=== PATIENT | male | born 1950 | race Caucasian/White ===

== ENCOUNTER → 2018-08-22 10:25 | Outpatient (CLI) | payer MEDICARE, OTHER, SELFPAY ==
[2014-12-17 10:41] VITALS: BMI 27.8
[2018-08-22 11:02] LABS: PSA,Total- Diagnostic < 0.01 ng/mL (0.0-4.0)
--- OUTSIDE RECORDS SUMMARY | 2018-10-17 18:53 | XMS RPT_ITS ---
:1950 Author Organization OHIP Care Team Providers Name Role Phone TAMIA HANNAH (LIBRARIAN HEAD) Attending Unavailable ROHINI FLORES (JONI) Referring Unavailable TANNA MCCRACKEN Attending Unavailable TAMIA HANNAH (LIBRARIAN HEAD) Referring Unavailable RADHA LEYVA Attending Unavailable RADHA LEYVA Referring Unavailable PROBLEMS PROBLEMS DATE TYPE CONDITION / CODE ATTENDING STATUS SOURCE 08/22/2018 Unknown C61 - Malignant RADHA LEYVA Active [facility] of [facility] prostate / Hospital C61(ICD-10) Repository 04/21/2014 Active Malignant NA Active [facility] neoplasm of [facility] prostate / Repository C61(ICD-10) 08/22/2018 Active Other senior living NA Active [facility] (current) drug [facility] therapy / Repository Z79.899(ICD-10) PROCEDURES PROCEDURES No Procedure Records FoundRESULTS RESULTS PROGRESS Observed: 08/29/2018 Status: COMPLETED Source: [place] 10:23 AM [facility] [place] REPOSITORY HNO ID: [id number] Author: Tanna Mccracken Service: (none) Author Type: Physician Type: Progress Notes Filed: 08/29/2018 8:29 PM Note Text: Reason for Visit Patient presents with: Establish Care: establish care transfer from Jerod Holley is a 67 year old male who presents here today for Above Complaints.. Health Maintenance There are no preventive care reminders to display for this patient. HPI Used to be seen by Dr Chacon. Recent diagnostic PSA was normal at less than 0.01 Had robotic surgery was treatment. He developed a Hernia after sugergy. He did not take any chemo and radiation. 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 Lives home with his . Diet: breakfast: cereal- low sugar cereal, blueberries, black berries, half cup of tomato juice and half a cup of iced tea. Lunch: chicken nuggets, hambuger, If out side, at home, lunch meat Dinner: home and not too much processed food. Potatoes, eats some vegetables, peppers celery. Some butter, sometimes on a sandwich he does not eat much, cheese, eats some eggs a couple of weeks. He is very active, and does some strengthening exercises. No problem-specific Assessment AND Plan notes found for this encounter. PAST MEDICAL HISTORY Diagnosis Date - Anxiety state, unspecified 06/26/2007 - BPH w urinary obs/LUTS 06/26/2006 - Chronic rhinitis 08/25/2009 - Diarrhea - Essential hypertension, benign - HYPERGLYCEMIA 06/26/2007 - Incisional hernia 09/29/2014 - Internal hemorrhoids without mention of complication - MITRAL REGURGITATION 06/26/2006 Echo 03 August 2000 - Obesity, unspecified - Other and unspecified hyperlipidemia 12/22/2005 - Prostate cancer (HCC) 04/21/2014 - Situational anxiety 03/12/2018 - Unspecified essential hypertension 12/22/2005 PAST SURGICAL HISTORY Procedure Laterality Date - APPENDECTOMY 1971 - COLONOSCOP W/ OR W/O [facility] SPEC 09/16/05 Colonoscopy - COLONOSCOP W/ OR W/O [facility] SPEC 12-03-14 - LAP RETROPUBIC PROSTATECTOMY 08/08 - REPAIR INCISIONAL HERNIA,REDUCIBLE 12-17-14 - TONSILLECTOMY AND ADENOIDECTOMY HX 1959 FAMILY HISTORY Problem Relation Age of Onset - Stroke Mother - Stroke Father - Diabetes Paternal Grandmother - None Brother - None Brother - Stroke Brother - Diabetes Brother - Hypertension Brother Social History Substance Use Topics - Smoking status: Never Smoker - Smokeless tobacco: Never Used - Alcohol use 3.0 oz/week 2 Cans of Beer (12oz) per week Past medical history, appointments, medications, allergies reviewed. Pertinent Lab/Diagnostic Studies are reviewed and discussed today Current Outpatient Prescriptions: - enalapril-hydrochlorothiazide (VASERETIC) 10-25 mg per tablet - escitalopram oxalate (LEXAPRO) 10 mg tablet - B Complex Vitamins (SUPER B-50 COMPLEX) capsule - turmeric root extract 500 mg cap - niacin (NIACIN) 500 mg tablet - aspirin, enteric coated (ASPIRIN, ENTERIC COATED) 81 mg EC tablet - LORazepam (ATIVAN) 0.5 mg tab - MULTIVITAMIN ORAL TAB Review of Systems CONSTITUTIONAL: No fevers, chills night sweats, unintended weight loss CARDIOVASCULAR: No chest pain, dyspnea, palpitations, orthopnea, PND, ankle edema. PULM: No dyspnea, unexplained cough. GI: No dysphagia/odynophagia, problematic reflux, constipation, diarrhea, changes in stool habits, hematochezia, melena. : No new urinary complaints, including dysuria, gross hematuria or pyuria. NEURO: No new balance problems, peripheral weakness/paresthesias or numbness of concern. Physical Exam BP 136/70 (BP Site: Left Arm, BP Position: Sitting, BP Cuff Size: Large Adult) Pulse 71 Resp 12 Ht 181.6 cm (5' 11.5) Wt 92.1 kg (203 lb) SpO2 94% BMI 27.92 kg/m? General appearance: Well appearing, alert, in no acute distress, well nourished. Skin: Skin color, texture, turgor normal, no suspicious rashes or lesions Head: Normocephalic, no masses, lesions, tenderness or abnormalities Eyes: Anicteric sclera. Pupils are equally round and reactive to light. Extraocular movements are intact. Lungs: Lungs clear to auscultation. No wheezing, rhonchi, rales Heart: RRR without murmur, gallop, or rubs. Extremities: No deformities, edema, skin discoloration, clubbing or cyanosis. Good capillary refill. ASSESSMENT/PLAN: 1. Essential hypertension - ICD9: 401.9, ICD10: I10 (primary diagnosis) - good control - Recommended regular aerobic exercise. - Recommend home blood pressure monitoring, to bring results in on next visit - Goal of BP <130/80 - ENALAPRIL 10 MG-HYDROCHLOROTHIAZIDE 25 MG TABLET 2. Prostate cancer (HCC) - ICD9: 185, ICD10: C61 Reviewed blood work 3. Anxiety - ICD9: 300.00, ICD10: F41.9 - ESCITALOPRAM 10 MG TABLET 4. Mixed hyperlipidemia - ICD9: 272.2, ICD10: E78.2 Will do dietary changes and exercise daily and see how that helps TANNA MCCRACKEN MD CNOV Observed: 08/29/2018 Status: COMPLETED Source: [place] 10:00 AM [facility] REPOSITORY Office Visit (INTMWS) JEROD HOLLEY ([id number]) 1950 M Date Time Provider Department 08/29/18 10:00 AM TANNA MCCRACKEN During your visit today, we recorded the following information about you: Pulse Respiration Blood pressure Weight 71/minute 12/minute 136/70 92.1 kg Height 1.816 m TANNA MCCRACKEN MD 08/29/2018 8:29 PM Signed Reason for Visit Patient presents with: Establish Care: establish care transfer from Jerod Holley is a 67 year old male who presents here today for Above Complaints.. Health Maintenance There are no preventive care reminders to display for this patient. HPI Used to be seen by Dr Chacon. Recent diagnostic PSA was normal at less than 0.01 Had robotic surgery was treatment. He developed a Hernia after sugergy. He did not take any chemo and radiation. 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 Lives home with his . Diet: breakfast: cereal- low sugar cereal, blueberries, black berries, half cup of tomato juice and half a cup of iced tea. Lunch: chicken nuggets, hambuger, If out side, at home, lunch meat Dinner: home and not too much processed food. Potatoes, eats some vegetables, peppers celery. Some butter, sometimes on a sandwich he does not eat much, cheese, eats some eggs a couple of weeks. He is very active, and does some strengthening exercises. No problem-specific Assessment AND Plan notes found for this encounter. PAST MEDICAL HISTORY Diagnosis Date - Anxiety state, unspecified 06/26/2007 - BPH w urinary obs/LUTS 06/26/2006 - Chronic rhinitis 08/25/2009 - Diarrhea - Essential hypertension, benign - HYPERGLYCEMIA 06/26/2007 - Incisional hernia 09/29/2014 - Internal hemorrhoids without mention of complication - MITRAL REGURGITATION 06/26/2006 Echo 03 August 2000 - Obesity, unspecified - Other and unspecified hyperlipidemia 12/22/2005 - Prostate cancer (HCC) 04/21/2014 - Situational anxiety 03/12/2018 - Unspecified essential hypertension 12/22/2005 PAST SURGICAL HISTORY Procedure Laterality Date - APPENDECTOMY 1971 - COLONOSCOP W/ OR W/O [facility] SPEC 09/16/05 Colonoscopy - COLONOSCOP W/ OR W/O [facility] SPEC 12-03-14 - LAP RETROPUBIC PROSTATECTOMY 08/08 - REPAIR INCISIONAL HERNIA,REDUCIBLE 12-17-14 - TONSILLECTOMY AND ADENOIDECTOMY HX 1960 FAMILY HISTORY Problem Relation Age of Onset - Stroke Mother - Stroke Father - Diabetes Paternal Grandmother - None Brother - None Brother - Stroke Brother - Diabetes Brother - Hypertension Brother Social History Substance Use Topics - Smoking status: Never Smoker - Smokeless tobacco: Never Used - Alcohol use 3.0 oz/week 2 Cans of Beer (12oz) per week Past medical history, appointments, medications, allergies reviewed. Pertinent Lab/Diagnostic Studies are reviewed and discussed today Current Outpatient Prescriptions: - enalapril-hydrochlorothiazide (VASERETIC) 10-25 mg per tablet - escitalopram oxalate (LEXAPRO) 10 mg tablet - B Complex Vitamins (SUPER B-50 COMPLEX) capsule - turmeric root extract 500 mg cap - niacin (NIACIN) 500 mg tablet - aspirin, enteric coated (ASPIRIN, ENTERIC COATED) 81 mg EC tablet - LORazepam (ATIVAN) 0.5 mg tab - MULTIVITAMIN ORAL TAB Review of Systems CONSTITUTIONAL: No fevers, chills night sweats, unintended weight loss CARDIOVASCULAR: No chest pain, dyspnea, palpitations, orthopnea, PND, ankle edema. PULM: No dyspnea, unexplained cough. GI: No dysphagia/odynophagia, problematic reflux, constipation, diarrhea, changes in stool habits, hematochezia, melena. : No new urinary complaints, including dysuria, gross hematuria or pyuria. NEURO: No new balance problems, peripheral weakness/paresthesias or numbness of concern. Physical Exam BP 136/70 (BP Site: Left Arm, BP Position: Sitting, BP Cuff Size: Large Adult) Pulse 71 Resp 12 Ht 181.6 cm (5' 11.5) Wt 92.1 kg (203 lb) SpO2 94% BMI 27.92 kg/m? General appearance: Well appearing, alert, in no acute distress, well nourished. Skin: Skin color, texture, turgor normal, no suspicious rashes or lesions Head: Normocephalic, no masses, lesions, tenderness or abnormalities Eyes: Anicteric sclera. Pupils are equally round and reactive to light. Extraocular movements are intact. Lungs: Lungs clear to auscultation. No wheezing, rhonchi, rales Heart: RRR without murmur, gallop, or rubs. Extremities: No deformities, edema, skin discoloration, clubbing or cyanosis. Good capillary refill. ASSESSMENT/PLAN: 1. Essential hypertension - ICD9: 401.9, ICD10: I10 (primary diagnosis) - good control - Recommended regular aerobic exercise. - Recommend home blood pressure monitoring, to bring results in on next visit - Goal of BP <130/80 - ENALAPRIL 10 MG-HYDROCHLOROTHIAZIDE 25 MG TABLET 2. Prostate cancer (HCC) - ICD9: 185, ICD10: C61 Reviewed blood work 3. Anxiety - ICD9: 300.00, ICD10: F41.9 - ESCITALOPRAM 10 MG TABLET 4. Mixed hyperlipidemia - ICD9: 272.2, ICD10: E78.2 Will do dietary changes and exercise daily and see how that helps TANNA MCCRACKEN MD Referring Provider: TAMIA HANNAH ([facility]) [[id number]] Allergies As of Date: 08/29/2018 Noted Allergy Reaction DUST 06/23/2005 HYDROCODONE-ACETAMINOPHEN 12/26/2014 1 - Mental Status Change Comments: Agitated Date Reviewed: 08/29/2018 Reviewed by: Steffanie Francisco LPN - Fully Assessed Reason for Visit: Establish Care [42] Cmt: establish care transfer from Primary Visit Diagnosis:Essential hypertension [I10] Other Visit Diagnoses:Prostate cancer (HCC) [C61] Anxiety [F41.9] Mixed hyperlipidemia [E78.2] Order(s):enalapril-hydrochlorothiazide (VASERETIC) 10-25 mg per tabletTake 1 tablet by mouth once daily.Disp: 90 tabletRfl: 3 escitalopram oxalate (LEXAPRO) 10 mg tabletTake 1 tablet by mouth once daily.Disp: 90 tabletRfl: 2 LIPID PANEL BASIC [SQLIPB] Order #: [id number] FUTURE Prescriptions as of 08/29/2018 Sig: ENALAPRIL 10 MG-HYDROCHLOROTH* Take 1 tablet by mouth once d* ESCITALOPRAM 10 MG TABLET Take 1 tablet by mouth once d* VITAMIN B COMPLEX CAPSULE Take 1 capsule by mouth once * TURMERIC ROOT EXTRACT 500 MG * Take by mouth once daily. NIACIN 500 MG TABLET Take 1 tablet by mouth daily * ASPIRIN 81 MG TABLET,DELAYED * Take 81 mg by mouth once ann* LORAZEPAM 0.5 MG TABLET Take 1 tablet by mouth once d* * MULTIVITAMIN TABLET Take one(1) tablet daily BY M* Medication notes this encounter LORAZEPAM 0.5 MG TABLET >> Steffanie Francisco LPN 08/29/2018 10:01 AM >> STEFFANIE FRANCISCO METAL PAINTER MonAug 29, 2018 10:01 AM patient never took this Problem List As Of Date 08/29/2018 Noted Resolved OVERWEIGHT [E66.9] Diarrhea [R19.7] INVALID FOR*02/08/2017 Internal hemorrhoids without mention of complic* 02/08/2017 Essential hypertension [I10] INVALID FOR* More... Other and unspecified hyperlipidemia [E78.5] INVALID FOR*06/30/2017 BPH w urinary obs/LUTS [N40.1, N13.8] INVALID FOR*02/08/2017 MITRAL REGURGITATION [I05.9] INVALID FOR* More... HYPERGLYCEMIA [R79.89] INVALID FOR*06/30/2017 Anxiety state, unspecified [F41.1] INVALID FOR*02/08/2017 Nonspecific abnormal results of liver function *INVALID FOR*02/08/2017 Chronic Rhinitis [J31.0] INVALID FOR* Kendrick angioma [D18.01] INVALID FOR*02/08/2017 Seborrheic Keratoses [L82.1] INVALID FOR*02/08/2017 Solar Lentigines [L81.4] INVALID FOR*02/08/2017 Actinic Damage///Sun-damaged skin [L57.8] INVALID FOR*02/08/2017 Elevated prostate specific antigen (PSA) [R97.2*INVALID FOR*02/08/2017 Abnormal digital rectal exam [R68.89] INVALID FOR*02/08/2017 Prostate cancer (HCC) [C61] INVALID FOR* More... Incisional hernia [K43.2] INVALID FOR*02/08/2017 Weight loss, non-intentional [R63.4] INVALID FOR*03/12/2018 Situational anxiety [F41.8] INVALID FOR* Prescriptions ordered this encounter Disp Refills Start End ENALAPRIL 10 MG-HYDROCHLOROTHIAZIDE * 90 t* 3 08/29/2018 Route: ORAL Sig: Take 1 tablet by mouth once daily. ESCITALOPRAM 10 MG TABLET 90 t* 2 08/29/2018 Route: ORAL Sig: Take 1 tablet by mouth once daily. Medications Discontinued During This Encounter enalapril-hydrochlorothiazide (VASER* 90 t* 3 04/11/2018 08/29/2018 Route: ORAL Sig: Take 1 tablet by mouth once daily. Disc: Reason for discontinue is not on file. escitalopram oxalate (LEXAPRO) 10 mg* 90 t* 2 03/12/2018 08/29/2018 Route: ORAL Sig: Take 1 tablet by mouth once daily. Disc: Reason for discontinue is not on file. Encounter Status:Closed by TANNA MCCRACKEN MD on 08/29/18 PSA,TOTAL- DIAGNOSTIC Collected: 08/22/2018 Status: F Source: [place] 10:35 AM [facility] REPOSITORY TYPE CODE TESTS RESULT OUT OF RANGE REFERENCE UNITS LAB L501.9940 0.0-4.0 ng/mL PSA, Normal DIAGNOSTIC < 0.01 Result Comment: This test was performed using the TPSA assay method for the [employer] chemistry system. Values obtained with different assay methods cannot be used interchangably. When changing PSA assays in the course of monitoring a patient, additional sequential testing should be carried out to confirm baseline values. Performed By: #### [id number] #### [facility] [address] [place], [address] PSA, DIAGNOSTIC Collected: 08/22/2018 Status: F Source: [facility] 10:10 AM [facility] REPOSITORY TYPE CODE TESTS RESULT OUT OF REFERENCE UNITS RANGE LAB PSA 0.00-2.59 ng/mL PSA, Test Diagnostic sent to [facility]. Result Comment: Account Credited HIDE BASIC METABOLIC PANL Collected: 08/22/2018 Status: F Source: [facility] 10:10 AM [facility] REPOSITORY TYPE CODE TESTS RESULT OUT OF REFERENCE UNITS RANGE LAB GLU 74-99 mg/dL High Glucose 106 Result Comment: The [place] [employer] (ADA) provides guidance for cutoff values for fasting glucose and random glucose. The ADA defines fasting as no caloric intake for at least 8 hours. Fas ting plasma glucose results between 100 to 125 mg/dL indicate increased risk for diabetes (prediabetes). Fasting plasma glucose results greater than or equal to 126 mg/dL meet the criteria for diagnosis of diabetes. In the absence of unequivocal hyperglycemia, results should be confirmed by repeat testing. In a patient with classic symptoms of hyperglycemia or hyperglycemic crisis, random plasma glucose results greater than or equal to 200 mg/dL meet the criteria for diagnosis of diabetes. Reference: Standards of Medical Care in Diabetes 2016, [place] [employer]. Diabetes Care. 2016.39(Suppl 1). LAB BUN 9-24 mg/dL BUN 16 LAB CRET 0.73-1.22 mg/dL Creatinine 0.90 LAB NA 136-144 mmol/L Sodium 142 LAB K 3.7-5.1 mmol/L Potassium 4.3 LAB CL 97-105 mmol/L Chloride 101 LAB CO2 22-30 mmol/L CO2 28 LAB AGAP 9-18 mmol/L Anion Gap 13 LAB CA 8.5-10.2 mg/dL Calcium, Total 9.4 LAB GFRAA eGFR- Amer. >60 LAB GFRNAA . eGFR-All Other Races >60 Result Comment: eGFR (Estimated GFR) Units of measure: mL/min/1.73 meters squared eGFR is derived from the reexpressed MDRD Study equation using the following parameters: serum creatinine, age, gender and race. The creatinine assay has been calibrated to be traceable to IDMS. An eGFR <60 mL/min/1.73m2 for >3 months is consistent with chronic kidney disease. Refer to KDOQI guidelines for clinical interpretation. In patients with unstable renal function, e.g. those with acute kidney injury, the eGFR may not accurately reflect actual GFR. Performed By: #### BMP, LIPB #### [facility] [address] [place], [place] [address] LIPID PANEL, BASIC Collected: 08/22/2018 Status: F Source: [place] 10:10 AM [facility] REPOSITORY TYPE CODE TESTS RESULT OUT OF REFERENCE UNITS RANGE LAB CHOL <200 mg/dL Cholesterol 171 Result Comment: <200 mg/dL, Desirable 200-239 mg/dL, Borderline high >239 mg/dL, High LAB TRIGLY <150 mg/dL Triglyceride High 159 Result Comment: <150 mg/dL, Normal 150-199 mg/dL, Borderline high 200-499 mg/dL, High >499 mg/dL, Very high LAB HDL >39 mg/dL HDL-Cholesterol Low 29 Result Comment: 40-59 mg/dL, Acceptable >59 mg/dL, High: Negative risk factor for coronary heart disease <40 mg/dL, Low: Positive risk factor for coronary heart disease LAB LDL <100 mg/dL LDL-Cholesterol High 110 Result Comment: <100 mg/dL, Optimal 100-129 mg/dL, Near optimal/above optimal 130-159 mg/dL, Borderline high 160-189 mg/dL, High >189 mg/dL, Very high Secondary prevention optimal LDL Cholesterol levels are recommended to be < 70 mg/dL LAB NONHDL <130 mg/dL Non HDL High Cholesterol 142 Result Comment: <130 mg/dL, Optimal 130-159 mg/dL, Near optimal/above optimal 160-189 mg/dL, Borderline high 190-219 mg/dL, High >219 mg/dL, Very high Secondary prevention optimal non HDL Cholesterol levels are recommended to be < 100 mg/dL LAB FT hrs Fasting Time 12 LAB VLDL <30 mg/dL High VLDL Cholesterol 32 LAB TCHDL <5.10 High TC:HDL Ratio 5.90 LAB LDLHDL <2.54 High LDL:HDL Ratio 3.79 Result Comment: Reference: 1. National Cholesterol Education Program ATP III Guideline At-A-Glance Quick Desk Reference: National Heart, Lung, and Blood [place]. National Institutes of Health. 2001: NIH Publication No. 01-3305. 2. An International Atherosclerosis Society position paper: global recommendations for the management of dyslipidemia: executive summary, Atherosclerosis. 2014: 232(2):410-413. Performed By: #### BMP, LIPB #### [facility] [address] [place] [address] CBC Collected: 08/22/2018 Status: F Source: [place] 10:09 AM [facility] REPOSITORY TYPE CODE TESTS RESULT OUT OF REFERENCE UNITS RANGE LAB WBC 3.70-11.00 k/uL WBC Unable to assay. No specimen received. Result Comment: Account Credited LAB RBC 4.20-6.00 m/uL Unable to RBC assay. No specimen received. Result Comment: Account Credited LAB HGB 13.0-17.0 g/dL Hemoglobin Unable to assay. No specimen received. Result Comment: Account Credited LAB HCT 39.0-51.0 % Hematocrit Unable to assay. No specimen received. Result Comment: Account Credited LAB MCV 80.0-100.0 fL Unable to MCV assay. No specimen received. Result Comment: Account Credited LAB MCH 26.0-34.0 pG Unable to MCH assay. No specimen received. Result Comment: Account Credited LAB MCHC 30.5-36.0 g/dL Unable MCHC to assay. No specimen received. Result Comment: Account Credited LAB RDWCV 11.5-15.0 % Unable RDW-CV to assay. No specimen received. Result Comment: Account Credited LAB PLTCT 150-400 k/uL Unable Platelet Count to assay. No specimen received. Result Comment: Account Credited LAB MPV 9.0-12.7 fL Unable to MPV assay. No specimen received. Result Comment: Account Credited LAB SOHAIL Recheck Unable to assay. No specimen received. Result Comment: Account Credited LAB REVW Unable to Review assay. No specimen received. Result Comment: Account Credited LAB CBCCOM Comment Unable to assay. No specimen received. Result Comment: Account Credited LAB ABSNUC <0.01 k/uL Unable Absolute nRBC to assay. No specimen received. Result Comment: Account Credited Performed By: #### CBC #### [facility] [address] [place], [place] [address] SHAUN CBC Collected: 08/22/2018 Status: F Source: [place] 10:00 AM [facility] [place] REPOSITORY TYPE CODE TESTS RESULT OUT OF REFERENCE UNITS RANGE LAB WWBC 3.70-11.00 k/uL [place] WBC 6.89 LAB WRBC 4.20-6.00 m/uL [place] RBC 5.50 LAB WHGB 13.0-17.0 g/dL [place] High Hemoglobin 17.2 LAB WHCT 39.0-51.0 % [place] Hematocrit 49.1 LAB WMCV 80.0-100.0 fL [place] MCV 89.3 LAB WMCH 26.0-34.0 pg [place] MCH 31.3 LAB WMCHC 30.5-36.0 g/dL [place] MCHC 35.0 LAB WRDW 11.5-15.0 % [place] RDW 12.4 LAB WPLT 150-400 k/uL [place] Platelet Cnt 278 LAB WMPV 9.0-12.7 fL [place] MPV 10.7 Result Comment: Test performed at: [facility] [place], [address] [place] [address]. PROGRESS Observed: 03/12/2018 Status: COMPLETED Source: [place] 8:52 AM [facility] REPOSITORY HNO ID: [id number] Author: Tamia (Technical Communication Teacher) Older Service: (none) Author Type: Nurse Practitioner Type: Progress Notes Filed: 03/12/2018 8:58 AM Note Text: CC: Patient presents with: Medication Follow-up HPI Jerod Holley is a 67 year old male who presents today for medication follow-up. Patient needs refill of Lexapro. Taking for anxiety. States he is doing well on the medication and denies any side effects. It is effective at controlling his anxiety and irritability. Denies any other concerns or issues today. REVIEW OF SYSTEMS General: no fevers, no chills, no night sweats, no recurrent infections, no change in appetite, no significant changes in weight. Positive for fatigue. Weight has gone up since last appointment, he had been concerned about recent weight loss. Work-up unremarkable for weight loss. Respiratory: no cough, no wheezing, no shortness of breath Cardiovascular: no chest pain, no chest pressure, no palpitations and no swelling PAST MEDICAL HISTORY Diagnosis Date - Anxiety state, unspecified 06/26/2007 - BPH w urinary obs/LUTS 06/26/2006 - Chronic rhinitis 08/25/2009 - Diarrhea - Essential hypertension, benign - HYPERGLYCEMIA 06/26/2007 - Incisional hernia 09/29/2014 - Internal hemorrhoids without mention of complication - MITRAL REGURGITATION 06/26/2006 Echo 03 August 2000 - Obesity, unspecified - Other and unspecified hyperlipidemia 12/22/2005 - Prostate cancer (HCC) 04/21/2014 - Unspecified essential hypertension 12/22/2005 PAST SURGICAL HISTORY Procedure Laterality Date - APPENDECTOMY 1972 - COLONOSCOP W/ OR W/O [facility] SPEC 09/16/05 Colonoscopy - COLONOSCOP W/ OR W/O [facility] SPEC 12-03-14 - LAP RETROPUBIC PROSTATECTOMY 08/08 - REPAIR INCISIONAL HERNIA,REDUCIBLE 12-17-14 - TONSILLECTOMY AND ADENOIDECTOMY HX 1959 ALLERGIES Dust; Hydrocodone-Acetaminophen MEDICATIONS escitalopram oxalate (LEXAPRO) 10 mg tablet Take 1 tablet by mouth once daily. LORazepam (ATIVAN) 0.5 mg tab Take 1 tablet by mouth once daily as needed (anxiety). enalapril-hydrochlorothiazide (VASERETIC) 10-25 mg per tablet Take 1 tablet by mouth once daily. B Complex Vitamins (SUPER B-50 COMPLEX) capsule Take 1 capsule by mouth once daily. turmeric root extract 500 mg cap Take by mouth once daily. niacin (NIACIN) 500 mg tablet Take 1 tablet by mouth daily with breakfast. aspirin, enteric coated (ASPIRIN, ENTERIC COATED) 81 mg EC tablet Take 81 mg by mouth once daily. MULTIVITAMIN ORAL TAB Take one(1) tablet daily BY MOUTH. FAMILY HISTORY Problem Relation Age of Onset - Stroke Mother - Stroke Father - Diabetes Paternal Grandmother - None Brother - None Brother - Stroke Brother - Diabetes Brother - Hypertension Brother Social History Substance Use Topics - Smoking status: Never Smoker - Smokeless tobacco: Never Used - Alcohol use 3.0 oz/week 2 Cans of Beer (12oz) per week PHYSICAL EXAM BP 120/79 Pulse 69 Temp 36.5 ?C (97.7 ?F) (Temporal Artery) Resp 14 Wt 88.5 kg (195 lb) SpO2 97% BMI 26.82 kg/m? Appearance: well dressed well groomed, cooperative and pleasant Behavior: good eye contact Speech: fluent and coherent Mood: euthymic Affect: constricted Insight: good Judgment: good Neck: Thyroid normal size and symmetric without palpable nodules, No adenopathy Lungs: Lungs clear to auscultation. No wheezing, rhonchi, rales Heart: RRR without murmur, gallop, or rubs. No ectopy ZOSTER VACCINE (SHINGRIX)(2 of 3) due on 10/12/2012 PNEUMOVAX AGE 65 AND OVER WITH 5YR LOOKBACK(1) due on 07/29/2019 DIABETES SCREEN due on 08/04/2020 LIPID SCREEN due on 06/24/2022 DTAP,TDAP,TD(2 - Td) due on 08/17/2022 COLORECTAL CANCER SCREENING,SEE MODIFIER due on 12/03/2024 PROSTATE CANCER SCREENING DISCUSSION Completed ADULT PREVNAR-13 Completed INFLUENZA Completed HEPATITIS C SCREENING Completed ASSESSMENT/PLAN: 1. Situational anxiety - ICD9: 300.09, ICD10: F41.8 (primary diagnosis) Patient doing well on current dose, no side effects Continue with Lexapro 10 mg daily Patient would like to transfer care to another PCP, will schedule 6 month follow-up for this 2. Essential hypertension - ICD9: 401.9, ICD10: I10 - good control - Continue current medication(s) - Encouraged dietary sodium restriction/DASH diet - Recommended regular aerobic exercise. - Recommend home blood pressure monitoring, to bring results in on next visit - Recheck in 6 months, sooner should new symptoms or problems arise. - Goal of BP <140/90 Prescription instructions reviewed with patient as applicable. Potential red flag symptoms discussed with the patient. Reviewed appropriate action plan to take if red flag symptoms occur. Patient agreeable to treatment plan. Tamia Hannah APRN.CNP CNOV Observed: 03/12/2018 Status: COMPLETED Source: [place] 8:40 AM [facility] REPOSITORY Office Visit (INTMWS) JEROD HOLLEY ([id number]) 1950 M Date Time Provider Department 03/12/18 8:40 AM TAMIA HANNAH (DIMAS) INTMWS During your visit today, we recorded the following information about you: Temperature Pulse Respiration Blood pressure 97.7 degrees 69/minute 14/minute 120/79 Weight 88.5 kg Tamia Hannah APRN.CNP 03/12/2018 8:50 AM Signed Shingrix (Shingles vaccination) Tamia Hannah APRN.CNP 03/12/2018 8:58 AM Signed CC: Patient presents with: Medication Follow-up HPI Jerod Holley is a 67 year old male who presents today for medication follow-up. Patient needs refill of Lexapro. Taking for anxiety. States he is doing well on the medication and denies any side effects. It is effective at controlling his anxiety and irritability. Denies any other concerns or issues today. REVIEW OF SYSTEMS General: no fevers, no chills, no night sweats, no recurrent infections, no change in appetite, no significant changes in weight. Positive for fatigue. Weight has gone up since last appointment, he had been concerned about recent weight loss. Work-up unremarkable for weight loss. Respiratory: no cough, no wheezing, no shortness of breath Cardiovascular: no chest pain, no chest pressure, no palpitations and no swelling PAST MEDICAL HISTORY Diagnosis Date - Anxiety state, unspecified 06/26/2007 - BPH w urinary obs/LUTS 06/26/2006 - Chronic rhinitis 08/25/2009 - Diarrhea - Essential hypertension, benign - HYPERGLYCEMIA 06/26/2007 - Incisional hernia 09/29/2014 - Internal hemorrhoids without mention of complication - MITRAL REGURGITATION 06/26/2006 Echo 03 August 2000 - Obesity, unspecified - Other and unspecified hyperlipidemia 12/22/2005 - Prostate cancer (HCC) 04/21/2014 - Unspecified essential hypertension 12/22/2005 PAST SURGICAL HISTORY Procedure Laterality Date - APPENDECTOMY 1971 - COLONOSCOP W/ OR W/O [facility] SPEC 09/16/05 Colonoscopy - COLONOSCOP W/ OR W/O [facility] SPEC 12-03-14 - LAP RETROPUBIC PROSTATECTOMY 08/08 - REPAIR INCISIONAL HERNIA,REDUCIBLE 12-17-14 - TONSILLECTOMY AND ADENOIDECTOMY HX 1959 ALLERGIES Dust; Hydrocodone-Acetaminophen MEDICATIONS escitalopram oxalate (LEXAPRO) 10 mg tablet Take 1 tablet by mouth once daily. LORazepam (ATIVAN) 0.5 mg tab Take 1 tablet by mouth once daily as needed (anxiety). enalapril-hydrochlorothiazide (VASERETIC) 10-25 mg per tablet Take 1 tablet by mouth once daily. B Complex Vitamins (SUPER B-50 COMPLEX) capsule Take 1 capsule by mouth once daily. turmeric root extract 500 mg cap Take by mouth once daily. niacin (NIACIN) 500 mg tablet Take 1 tablet by mouth daily with breakfast. aspirin, enteric coated (ASPIRIN, ENTERIC COATED) 81 mg EC tablet Take 81 mg by mouth once daily. MULTIVITAMIN ORAL TAB Take one(1) tablet daily BY MOUTH. FAMILY HISTORY Problem Relation Age of Onset - Stroke Mother - Stroke Father - Diabetes Paternal Grandmother - None Brother - None Brother - Stroke Brother - Diabetes Brother - Hypertension Brother Social History Substance Use Topics - Smoking status: Never Smoker - Smokeless tobacco: Never Used - Alcohol use 3.0 oz/week 2 Cans of Beer (12oz) per week PHYSICAL EXAM BP 120/79 Pulse 69 Temp 36.5 ?C (97.7 ?F) (Temporal Artery) Resp 14 Wt 88.5 kg (195 lb) SpO2 97% BMI 26.82 kg/m? Appearance: well dressed well groomed, cooperative and pleasant Behavior: good eye contact Speech: fluent and coherent Mood: euthymic Affect: constricted Insight: good Judgment: good Neck: Thyroid normal size and symmetric without palpable nodules, No adenopathy Lungs: Lungs clear to auscultation. No wheezing, rhonchi, rales Heart: RRR without murmur, gallop, or rubs. No ectopy ZOSTER VACCINE (SHINGRIX)(2 of 3) due on 10/12/2012 PNEUMOVAX AGE 65 AND OVER WITH 5YR LOOKBACK(1) due on 07/29/2019 DIABETES SCREEN due on 08/04/2020 LIPID SCREEN due on 06/24/2022 DTAP,TDAP,TD(2 - Td) due on 08/17/2022 COLORECTAL CANCER SCREENING,SEE MODIFIER due on 12/03/2024 PROSTATE CANCER SCREENING DISCUSSION Completed ADULT PREVNAR-13 Completed INFLUENZA Completed HEPATITIS C SCREENING Completed ASSESSMENT/PLAN: 1. Situational anxiety - ICD9: 300.09, ICD10: F41.8 (primary diagnosis) Patient doing well on current dose, no side effects Continue with Lexapro 10 mg daily Patient would like to transfer care to another PCP, will schedule 6 month follow-up for this 2. Essential hypertension - ICD9: 401.9, ICD10: I10 - good control - Continue current medication(s) - Encouraged dietary sodium restriction/DASH diet - Recommended regular aerobic exercise. - Recommend home blood pressure monitoring, to bring results in on next visit - Recheck in 6 months, sooner should new symptoms or problems arise. - Goal of BP <140/90 Prescription instructions reviewed with patient as applicable. Potential red flag symptoms discussed with the patient. Reviewed appropriate action plan to take if red flag symptoms occur. Patient agreeable to treatment plan. Tamia Hannah APRN.LIBRARIAN HEAD Referring Provider: SELF [200] Allergies As of Date: 03/12/2018 Noted Allergy Reaction DUST 06/23/2005 HYDROCODONE-ACETAMINOPHEN 12/26/2014 1 - Mental Status Change Comments: Agitated Date Reviewed: 03/12/2018 Reviewed by: Arelis Ceja Fur Polisher - Fully Assessed Reason for Visit: Medication Follow-up [270] Primary Visit Diagnosis:Situational anxiety [F41.8] Other Visit Diagnosis:Essential hypertension [I10] Order(s):escitalopram oxalate (LEXAPRO) 10 mg tabletTake 1 tablet by mouth once daily.Disp: 90 tabletRfl: 2 Prescriptions as of 03/12/2018 Sig: ESCITALOPRAM 10 MG TABLET Take 1 tablet by mouth once d* LORAZEPAM 0.5 MG TABLET Take 1 tablet by mouth once d* ENALAPRIL 10 MG-HYDROCHLOROTH* Take 1 tablet by mouth once d* VITAMIN B COMPLEX CAPSULE Take 1 capsule by mouth once * TURMERIC ROOT EXTRACT 500 MG * Take by mouth once daily. NIACIN 500 MG TABLET Take 1 tablet by mouth daily * ASPIRIN 81 MG TABLET,DELAYED * Take 81 mg by mouth once ann* * MULTIVITAMIN TABLET Take one(1) tablet daily BY M* Problem List As Of Date 03/12/2018 Noted Resolved OVERWEIGHT [E66.9] Diarrhea [R19.7] INVALID FOR*02/08/2017 Internal hemorrhoids without mention of complic* 02/08/2017 Essential hypertension [I10] INVALID FOR* More... Other and unspecified hyperlipidemia [E78.5] INVALID FOR*06/30/2017 BPH w urinary obs/LUTS [N40.1, N13.8] INVALID FOR*02/08/2017 MITRAL REGURGITATION [I05.9] INVALID FOR* More... HYPERGLYCEMIA [R79.89] INVALID FOR*06/30/2017 Anxiety state, unspecified [F41.1] INVALID FOR*02/08/2017 Nonspecific abnormal results of liver function *INVALID FOR*02/08/2017 Chronic Rhinitis [J31.0] INVALID FOR* Kendrick angioma [D18.01] INVALID FOR*02/08/2017 Seborrheic Keratoses [L82.1] INVALID FOR*02/08/2017 Solar Lentigines [L81.4] INVALID FOR*02/08/2017 Actinic Damage///Sun-damaged skin [L57.8] INVALID FOR*02/08/2017 Elevated prostate specific antigen (PSA) [R97.2*INVALID FOR*02/08/2017 Abnormal digital rectal exam [R68.89] INVALID FOR*02/08/2017 Prostate cancer (HCC) [C61] INVALID FOR* Incisional hernia [K43.2] INVALID FOR*02/08/2017 Weight loss, non-intentional [R63.4] INVALID FOR*03/12/2018 Situational anxiety [F41.8] INVALID FOR* Other instructions from your clinician: Shingrix (Shingles vaccination) Prescriptions ordered this encounter Disp Refills Start End ESCITALOPRAM 10 MG TABLET 90 t* 2 03/12/2018 Route: ORAL Sig: Take 1 tablet by mouth once daily. Medications Discontinued During This Encounter escitalopram oxalate (LEXAPRO) 10 mg* 30 t* 0 03/06/2018 03/12/2018 Route: ORAL Sig: Take 1 tablet by mouth once daily. Disc: Reason for discontinue is not on file. Encounter Status:Closed by TAMIA HANNAH CNP on 03/12/18 ALLERGIES ALLERGIES DATE TYPE / CODE NAME / CODE REACTION SEVERITY SOURCE 12/26/2014 DRUG/[id number] HYDROCODONE-A Mental Chg [facility] 03(SNOMED CETAMINOPHEN [place]) Repository 12/10/2014 Drug No Known Unknown [facility] Allergy/4160 Allergies/F00 [facility] [address]3862(SNOMED [id number](RXNOR Repository CT) M) 06/23/2005 Environ/4201 DUST [facility] [address]291(SNOMED [address] [place]) Repository ENCOUNTERS ENCOUNTERS ADMIT/DISCHARGE ACCOUNT ADMITTING ENCOUNTER LOCATION SOURCE NUMBER CLASS 08/29/2018/08/30/20 [id number] Ambulatory [address] Repository 08/22/2018 [id number] Ambulatory [facility] ing:LABSPEC Repository 08/22/2018/08/27/20 [id number] Ambulatory [address] Repository 03/12/2018/03/13/20 [id number] Ambulatory [address] Repository PAYERS PAYERS ENCOUNTER GUARANTOR PAYER SUBSCRIBER SOURCE 08/22/2018 JEROD HOLLEY1868 Primary JEROD CONDEOB: [facility] Insurance[id number] [facility] [address]Ltc: (330) Number: Repository [phone] ) [id number] Date:2018-08-22 08/22/2018 Secondary JEROD ELTONOB: Shaun Insurance:[employer] OF [id number] [facility] Number: [facility] [id number] Repository Date:[id number], [place] [address]TQ: 08/22/2018 Tertiary NOT GIVENUNK Shaun Insurance:SELF PAY [facility] Number: Effective Repository Date:2018-08-22
== END ==
DX: C61 Malignant neoplasm of prostate (principal)
CPT/HCPCS: 84153

== ENCOUNTER → 2020-03-29 19:09 | Outpatient (CLI) | payer MEDICARE, OTHER, SELFPAY | PROVIDERS: PCP Internal Medicine; Referring Provider Internal Medicine; Visit Provider Internal Medicine | DX: R07.9 Chest pain, unspecified (principal) | CPT/HCPCS: 87635; G2023; U0003 ==

== ENCOUNTER → 2020-07-22 10:48 | Outpatient (CLI) | payer MEDICARE, OTHER, SELFPAY ==
--- NOTE | 2020-07-22 10:51 | VDLE_ITS ---
Reason For Study: Pain left calf Procedure LEFT This is a venous duplex using B-mode, color CFV is compressible, spontaneous, phasic, flow and spectral Doppler. competent, and demonstrates normal Exam performed in department. augmentation. A preliminary report was called and/or faxed FV is compressible, spontaneous, phasic, to Marisabel. competent and demonstrates normal augmentation. POP V is compressible, spontaneous, phasic, competent and demonstrates normal augmentation. T/P Trunk is compressible. PTV is compressible. LT PerV is compressible. GSV harvested approximently 2 weeks prior to scan. Interpretation Summary There is no evidence of left lower extremity deep vein thrombosis. History suggests that the left great saphenous vein was harvested approximately 2 weeks prior Ordering Physician: ROBY WATSON Referring Physician: Tanna Hinds Performed By: yL Archer RVT and Student
== END ==
PROVIDERS: PCP Internal Medicine
DX: M79.662 Pain in left lower leg (principal)
CPT/HCPCS: 93971

== ENCOUNTER → 2020-08-04 11:51 | Outpatient (CLI) | payer MEDICARE, OTHER, SELFPAY ==
--- NOTE | 2020-08-04 11:58 | CR.ITP_ITS ---
Diagnosis - General Information Admitting Diagnosis: S/P CABG Personal Learning Style:: Audio/Visual, Written Barriers to Learning: Hearing Impairment, Vision Impairment Stage of change r/t lifestyle modifications:: Action Gave educational material for:: Treating Heart Disease, Emotions & Heart Disease, Stress Management & Relaxation, Sleep Disorders & Heart Disease, How The Heart Works, What it means to have Heart Disease, How Coronary Artery Disease is Diagnosed, Heart Procedures, What Heart Medications Do, Risk Factors & Modifications, Living an Active Life, Nutrition - Education/Goals Individual Counseling: Initial Assessment: Abnormal Cholesterol Levels, High Blood Pressure, Overweight/Obesity Cardiac Rehabilitation Goals: 1. Maintain the individual as the primary focus of care. 2. To improve the patient's quality of life. 3. Identification of cardiac risk factors and provide cardiac risk factor management. 4. Enhance the psychosocial status of the patient. 5. Reconditioning enough to allow the patient to resume customary activities. 6. Control symptoms of cardiac disease Personal Goals: Initial Assessment: Improve energy level, Participate in home exercise program, Get back to work, or to resume activities faster, Improve knowledge of cardiac disease, Improve muscle strength and endurance, Improve di et and eating habits (eat healthier), Control risk factors (learn risk factor modification) Scale for measuring improvement of personal goals: Enter appropriate number in Comments. 2 = Unchanged. 3 = Slightly Better. 4 = Moderate Improvement. 5 = Met my Goal - Diagnosis & Disease Process Outcomes/Goals: Pt IDs own risk factors & lifestyle modifications by Session 10, Verbalizes symptoms of angina & response by session 3., Pt independently manages Plan/Interventions: Assist Pt to ID & engage in lifestyle modification to reduce CVD risk, Instruct on individual risk factors, Review symptoms of angina & emergency actions, Review secondary diagnosis & identify educational needs. - Safety Referral to Physical Therapy: No Referral to [facility] Case Management: No Fall Risk Assessed:: Yes Assistive Devices:: None Exercise - Initial Assessment - Visit Date of Eval: 08/04/20 Session #:: 0 - PRE-CARDIAC REHAB Mets: Pre-: >5 METS for 30 minutes by discharge - Physician Prescribed Exercise Modalities: Treadmill, Airdyne, NuStep Frequency: 3x/week for 12 weeks [36 sessions] Intensity: 60-80% of age predicted maximum heart rate reserve Current METSs:: 3.0 Target Heart Rate:: 99-129 - Outcomes & Goals Goals:: Verbalizes understanding of THR, RPE & goal METS by session 6, Documents in home exercise log/reports 30 min aerobic 5 day/wk by DC, Demonstrates accurate pulse taking by DC - Intervention & Plan Exercise Program Goals: Instruct on personal THR & RPE, Instruct on MET level & personal MET goal, Show patient to take own pulse /validate performance until accurate, Instruct on home exercise - Physical Activity Home Exercise Physical Activity - Home Exercise: Safe Exercise, Warm-up, Self-monitoring, Cool-Down, Home Exercise > 30 min Daily, Sitting Time <3 hours/daily - Outcomes & Goals Outcomes/Goals: Demonstrates correct Warm-up/exercise Cool-Down (S3) if = 2.5 METs, Verbalizes symptoms of exercise intolerance by Session 3 (S3), Demonstrate safe equipment use (S3) & follows exercise prescrition (6) - Intervention & Plan Plan/Intervention: Instruct warm-up & cool-down if exercising at > 2 METs, Instruct on symptoms of exercise intolerance & actions to take, Instruct & monitor on saf, Assess intial functional capacity & safety risk Nutrition - Initial Assessment - Program Goals Nutrition Program Goals: LDL <100 optimal. 100 - 129 Near optimal. 130 - 159 Borderline High. 160 - 189 High. Total Cholesterol <200 desirable. 200 - 239 Borderline High. >/= 240 High. HDL < 40 Low >/=60 High. Triglycerides <150 desirable. <199 optimal. VlDL 5 - 40. HgbA1C <7%. BMI <25 Patient has diagnosis of Hyperlipidemia (ICD E78)?: Yes - Visit Date of Assessment:: 08/04/20 Session #:: 0 - PRE-CARDIAC REHAB - Cholesterol/Lipids Triglycerides (mg/dL): 0 - NOT MADE AVAILABLE Determine presence & major risk factors that modify LDL goal: Hypertension or hypertensive medication, Age men > 45 years; women >/= 55 years Outcomes/Goals: Pt IDs own risk factors & lifestyle modifications by Session 10, Verbalizes symptoms of angina & response by session 3. Intervention/Plan: Instruct on personal lipid levels & lipid goals/NCEP guidelines, Instruct on cholesterol - Diabetes (Other Core Measures) Diabetes Type: Not Applicable - Weight Mgt (Other Care) Not Applicable: No Height: 5 ft 11 in Weight:: 209 lb BMI: 29.1 Diagnosis Overweight/Obesity BMI> 30% ICD-10 E66: Yes Diagnosis High BMI/Morbid Obesity BMI> 35% ICD-10 Z68: No Outcomes/Goals: Pt sets, maintains & shows weight loss goal & trend during rehab Intervention/Plan: Instruct on ideal BMI & set weight loss goal w/patient, Assist pt to ID & incorporate diet changes for weight loss by S9, Refer to Structured Weight Loss program as appropriate, Encourage goal of using 250- 300dcal per session for weight loss - Healthy Eating Habits Will attend diet classes:: Yes Outcomes/Goals:: Consume diet rich in vegs,fruits,whole grain/high fiber,fish,lean meat, Limit sat/trans fats,cholesterol & added salts & sugars Intervention/Plan:: Assess current eating habits - Education Gave educational materials for:: Healthy eating Medical - Initial Assessment - Visit Date of Eval: 08/04/20 Session #:: 0 - PRE-CARDIAC REHAB - Medication Compliance Preventative Medication(s):: Aspirin, Statin/lipid, Beta naila H/O mental health issues: depression, anxiety, or addiction?: No Doesn?t believe in the benefits of treatment?: No Believes medications are unnecessary or harmful?: No Has a concern about medication side effects?: No Expresses concern over the cost of medications?: No Outcomes/Goals: Verbalizes medications,desired effect & common side effects @ DC, Pt self-reports following medication regimen, Keeps card in wallet w/medications listed by DC Interventions/plans: Instruct on medication effects & side effects, Review medication list w/patient every two weeks, Instruct importance of taking meds as ordered & assist problem solving - Tobacco Use Tobacco Use: Non-smoker - Hypertension Hypertension Diagnosis:: Hypertension ICD-10 I10 Resting Blood Pressure:: 110/72 [place] [employer] Hypertension Guidelines: [place] [employer] Hypertension Guidelines. Normal BP Less than 120/80. Elevated BP 120/80. Hypertension Stage 1: BP 130-139/80-89. Hypertesnion Stage 2: BP 140 or higher/90 or higher. Hypertension Crisis: BP higher than 180/120 Outcomes/Goals: Able to verbalize/achieve optimal blood pressure <130/80, Incorporates diet changes & exercise for blood pressure control by DC Interventions/plan: Instruct on optimal blood pressure, hypertension & medications, Instruct on effects of sodium, alcohol, stress, exercise &hypertension - Tobacco Cessation Referral Smoking Cessation Referral:: No Individual Education/Counseling:: No Education Schedule Given:: Yes Psychosocial - Initial Assess - VIsit Date of Eval: 08/04/20 Session #:: 0 - PRE-CARDIAC REHAB Not Applicable: Yes History of previous Mental disease:: No - Target Goals Target Goals: Assess presence or absence of depression. Using a valid screening tool, maximizes coping skills. Positive support system - Psychosocial Test Tool Used:: Tony Mark QOL Cardiac, PHQ-9 Questionnaire phq-9 Severity: Severity. 1-4 Minimal Depression. 5-9 Mild Depression. 10-14 Moderate Depression. 15-19 Moderately Sever Depression. 20-27 Severe Depression. Rule: - Referral to Behavioral Health PS - Interventions: Yes Attend Stress Management Classes, No Referral to Behavioral Health if PHQ-9 score >9:, No Referral to Physician if PHQ-9 if score is 5-9: - Outcomes/Goals: See list Psychosocial Outcomes/Goals:: ID's personal stressors & 2 strategies to manage stress by discharge - Intervention/Plan: See List Interventions/Plan:: Assess stressors,coping strategies & signs of derpression on admission, Instruct/assist pt to develop coping & personal stress Mgt strategies, Instruct patient to recognize signs & symptoms of depression, Instruct patient to recog Patient Health Questionnaire Initial Assessment 1. Little interest or pleasure in doing things: Not at all 2. Feeling down, depressed, or hopeless: Not at all 3. Trouble falling or staying asleep, or sleeping too much: Several days 4. Feeling tired or having little energy: Not at all 5. Poor appetite or overeating: Not at all 6. Feeling bad about yourself -- or that you are a failure or have let yourself or your family down: Not at all 7. Trouble concentrating on things, such as reading the newspaper or watching television: Not at all 8. Moving or speaking so slowly that other people could have noticed. Or the opposite - being so fidgety or restless that you have been moving around a lot more than usual: Not at all 9. Thoughts that you would be better off , or of hurting yourself in some way: Not at all How difficult have these problems made it for you to do your work, take care of things at home, or get along with other people?: Not difficult at all Total Score: 1 CLEO-Q SV Test - Statements CAD is a disease of the arteries in the heart: False Examples of risk factors for heart disease: True Angina is chest pain or discomfort: True The benefits of resistance training include: True Eating more meat and dairy products: False Anti-platelet medications such as aspirin are important: True The only effective way to manage stress: False An exercise warm-up slowly increases heart rate: True Prepared, processed foods usually have high sodium: True Depression is common after a heart attack: True The statin medications lower cholesterol: True To control blood pressure, lower the amount of sodium: True If someone gets chest discomfort during walking: False Transfats are partially hydrogenated vegetable oils: True Sleep apnea that is not treated increases the risk: False To control cholesterol, one should become a vegetarian: False Someone knows if he/she is exercising at the right level: I Don't Know Diabetes cannot be prevented with exercise & health eating: False Stress is a large risk for heart attack: True A diet that can help lower blood pressure is rich in: True - Total Score Total Correct Responses: 19 Self-Efficacy Initial Assessment We would like to know how confident you are in doing certain activities. Please select your confidence level for:: Select your confidence level for the following using the scale 1-10 where 1 is not at all confident and 10 is totally confident. Your score is the average of all 6 responses. Fatigue: How confident are you that you can keep the fatigue caused by your disease from interfering with the things you want to do? Select Number: 9 Physical Discomfort or Pain: How confident are you that you can keep the physical discomfort or pain of your disease from interfering with the things you want to do? Select Number: 9 Emotional Distress: How confident are you that you can keep the emotional distress caused by your disease from interfering with the things you want to do? Select Number: 9 Other Symptoms or Health Problems: How confident are you that you can keep other symptoms or health problems from interfering with the things you want to do? Select Number: 9 Different Tasks and Activities: How confident are you that you can do the different tasks and activities needed to manage your health condition so as to reduce your need to see a doctor? Select Number: 9 Medication: How confident are you that you can do things other than just taking medication to reduce how much your illness affects your everyday life? Select Number: 9 Total Score:: 9 Nutrition Survey - Nutrition Survey Instructions Scoring Instructions: Scoring is as follows: Yes = 1 points. No = 0 point. Patient score that is >/=12 is considered to be at potential nutritional risk and could benefit from a referral to a registered dietitian. - Nutrition Survey Initial Have you lost >10 lbs over the past 2 months without trying?: Yes Are you following a special diet at home for diabetes, low fat, or low salt?: Yes Are you interested in meeting with a dietitian for help understanding your diet?: Yes Do you eat less than 3 meals a day?: No Do you eat fatty meats (cardoso, sausage, ribs, etc), fried foods, desserts, large amounts of salad dressings, margarine, butter, or cheese most days?: No Do you have food allergies? [Enter types in comment field]: No Do you eat in restaurants more than 3 times a week?: No Do you season food with salt, seasoning salt, or garlic salt?: No Do you used canned, boxed, frozen meals, or soups, seasoning packets?: No Total Score:: 3
--- NOTE | 2020-08-04 11:58 | CR.HP_ITS ---
CR - History & Physical - General Arrival date:: 08/04/20 Arrival time:: 12:04 Date of Referral:: 07/29/20 Date of CR Evaluation:: 08/04/20 Referring Physician: DR. NARESH SNOW Primary Diagnosis: S/P CABG - History of Present Cardiac Event Onset Date: Enter Onset Date of cardiac illnesses in Comment field below Coronary Artery Bypass Graft:: Yes - 06/30/2020 - Medications Home Medications: Ambulatory Orders Medication Instructions Recorded Aspirin [Aspirin, Baby] 81 mg PO DAILY@0800 12/10/14 Enalapril/Hydrochlorothiazide 1 each PO DAILY 12/10/14 [Vaseretic 10-25 mg Tablet] Multivitamins,Ther W-Minerals 1 tablet PO DAILY 12/10/14 [Multivitamin With Minerals ([facility])] Escitalopram Oxalate [Lexapro] 10 mg PO DAILY 08/04/20 Gabapentin [Neurontin] 100 mg PO BIDCM 08/04/20 Magnesium Oxide [Mag-Ox 400] 400 mg PO DAILY 08/04/20 Metoprolol Tartrate [Lopressor 25 mg PO BID 08/04/20 (Beta Luz)] Rosuvastatin Calcium [Crestor] 20 mg PO QHS 08/04/20 Tamsulosin HCl [Flomax] 0.4 mg PO 08/04/20 - Allergies Allergies/Adverse Reactions: Allergies No Known Allergies Allergy (Verified 12/10/14 14:12) - Sleep Disorder Evaluation Hx of Sleep Apnea: No Do you snore loudly (louder than talking or can be heard through closed doors)?: No Do you often feel tired/ fatigued/ sleepy during daytime?: No Has anyone observed you stop breathing during sleep?: No History of Hypertension (for STOP score): Yes STOP Results: Negative Advanced Directives - Advanced Directives Power of Clean Energy Policy Analyst: Yes Living Will: Yes Advance Directives Information Provided: No Advance Directives on File: No - might be from hernia surgery 5 years ago. DNR Order?:: No - MOLST See MOLST form: No Past Medical History - Covid-19 Screening Fever: No Unexplained muscle aches: No Current respiratory symptoms: No Upper respiratory infections symptoms: No Gastro-intestinal symptoms: No Xws-Kbaf-Bbsodz symptoms: No Has tested positive for COVID-19 in last 30 days: No Had contact w/person w/symptoms or Covid-19 (+) last 14 days: No Has High Risk Exposures ID'd by Health dept/Inf Control team: No 65 years or older:: Yes Lives in Assisted Living facility:: No Has a chronic lung disease or moderate to severe asthma:: No Has a serious heart condition:: Yes Immunocompromised:: Yes Severely obese (Body Mass Index of 40 or higher):: No Diabetic:: No Has chronic kidney disease undergoing dialysis:: No - Past Medical Illness Medical History: Past Medical History (Last Updated 08/04/20 @ 12:14 by Taye Villalba, FREDY, PEDIATRIC PHYSICAL THERAPIST, BS) Abnormal colonoscopy R93.3 Anxiety F41.9 BPH (benign prostatic hyperplasia) N40.0 Hyperglycemia R73.9 Hyperlipidemia E78.5 Incisional hernia K43.2 Internal hemorrhoids K64.8 Mitral regurgitation I34.0 Obesity (BMI 30-39.9) E66.9 Prostate cancer C61 Situational anxiety F41.8 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 - Substance Abuse Hx Substance Use: No - Occupation Occupation (List type of work in comments):: Retired - Hobbies, Recreation, Social Activities Hobbies: Farm - gardening, yard work etc., Other - active wiht rental properties/maintenance Recreational Activities: I am able to engage in a few activities - because of th e weight restriction Social Environment - Status Marital Status: - Current Living Arrangements Living Environment:: Spouse - Children How many children do you have?: 2 Do any of your children live nearby?: No - Safety Do you feel safe in your surroundings?: Yes - Assistance Do you need any assistance at home?: none Review of Systems - Review of Systems Hints: Right click = Denies (Slash). Left click = Reports ([place]) Review of Present Symptoms: Reports: Dizziness/Lightheadedness - occasionally when get up, fell on Monday because got dizzy and fell on knee., Appetite - Normal, Appetite - Special Diet - low sodium low fat diet, Sleep - Normal - s eems to be stablaizing now.. Denies: Shortness of Breath at Rest, Shortness of Breath with Exertion, Operative Discomfort, Angina, Wound Healing, Fatigue, Heart Arrhythmia/Irregularities - Pain Is Patient Pain Free?: Yes Pain Location: none Pain Level: 0/10 Risk Factor Assessment - Chief Complaint Chief Complaint: Patient is a 69 yr old male of Dr. Snow who is coming to [facility] for his post CABG cardiac rehab. Patient resides in [place], [place] and has chosen [facility] for his health care. - Vital Signs Temperature: 97.3 F Respiratory Rate: 12 Pulse Ox: 98 Blood Pressure: 110/72 - Pulse Pulse Rate: 72 Pulse Rhythm: Regular - Hypertension Blood Pressure Sitting - Left Arm: 110/72 - Blood Cholesterol/Lipids Total Cholesterol (mg/dL) Goal = less than 200 mg/dL: 0 - not made available - Obesity Height: 5 ft 11 in Weight:: 219 lb Weight in Pounds: 219.0 lbs Weight Source: Standing Scale Body Mass Index (BMI): 30.5 - Physical Inactivity Physical Inactivity: Reg Exercise 30 min/day, Recreational activity - For Smoking Smoking Risk Guidelines: Smoking Low Risk: None or quit greater than 6 months ago. Smoking Moderate Risk: Smoker or quit 6 months or less ago. Smoking High Risk: Smoker - For Dyslipidemia Dyslipidemia Risk Guidelines: Low Risk: Moderate Risk: High Risk: 15-25% fat 25.1-29% fat >/= 30% fat. <7% sat fat 7-9% sat fat >9% sat fat. <150 mg chol 150-299 mg chol >/= 300 mg chol. LDL <100 LDL 100-129 LDL >/= 130. Chol/HDL ratio <5.0 Chol/HDL ratio 5.0-6.0 Chol/HDL ratio >6.0. Triglycerides <100 Triglycerides 100- 149 Triglycerides >/= 150 - For Diabetes Mellitus Diabetes Risk Guidelines: Diabetes Low Risk: HgA1c <6.5% and/or FBG <120. Diabetes Moderate Risk: HgA1c 6.6-7.9% and/or FBG 120-180. Diabetes High Risk: HgA1c >/= 8% and/or FBG >180 - For Obesity/Overweight Obesity/Overweight Risk Guidelines: Obesity Low Risk: BMI <25.0. Obesity Moderate Risk: BMI 25-29.9. Obesity High Risk: BMI >/= 30.0 - For Hypertension Hypertension Risk Guidelines: Hypertension Low Risk: Systolic <120 and Diastolic <80. Hypertension Moderate Risk: Systolic 120-139 and Diastolic 80-89. Hypertension High Risk: Systolic >/= 140 and Diastolic >/= 90 - For Sedentary Lifestyle Sedentary Lifestyle Risk Guidelines: Sedentary Lifestyle Low Risk: >/= 1,500 kcal/week. Sedentary Lifestyle Moderate Risk: 700-1,499 kcal/week. Sedentary Lifestyle High Risk: < 700 kcal/week - For Depression Depression Risk Guidelines: Depression Low Risk: Not clinically depressed. Depression Moderate Risk: Mildly depressed. Depression High Risk: Clinically depressed Motivation - Motivation to Participate On a scale of 1 to 10, how prepared are you to commit to attending program?: 10 What do you see as barriers to successfully being able to complete the program?: none What do you see as the benefits of succesfully completing the program? In other words, what do you hope to get out of participating in the program?: get back to being able to do what I did before. Are there issues you are dealing with that will interfere with completing the p rogram?: none Do you have a spouse or signficant other, family or friends who will help support you to complete the program?: yes
[2020-08-04 12:21] VITALS: BP 110/72; PULSE 72; RESP 12; TEMP 36.3; O2SAT 98; BMI 30.5
[2020-08-04 13:02] VITALS: BP 110/72; BMI 29.1
== END ==
PROVIDERS: PCP Internal Medicine; Referring Provider Thoracic Surgery (Cardiothoracic Vascular Surgery); Visit Provider Thoracic Surgery (Cardiothoracic Vascular Surgery)
DX: E78.5 Hyperlipidemia, unspecified (principal); I10 Essential (primary) hypertension; R73.9 Hyperglycemia, unspecified; E66.9 Obesity, unspecified

== ENCOUNTER 2020-08-24 11:30 | Outpatient (RCR) | payer MEDICARE, OTHER, SELFPAY ==
[2020-08-04 12:21] VITALS: BMI 30.5
[2020-08-04 12:23] VITALS: BMI 29.1
--- NOTE | 2020-08-17 11:49 | EKG12_ITS ---
Test Reason : PRE CARDIAC REHAB Blood Pressure : / mmHG Vent. Rate : 055 BPM Atrial Rate : 055 BPM P-R Int : 150 ms QRS Dur : 124 ms QT Int : 400 ms P-R-T Axes : 085 039 -26 degrees QTc Int : 382 ms Sinus bradycardia Possible Left atrial enlargement Right bundle branch block T wave abnormality, consider inferior ischemia Abnormal ECG Confirmed by SAI CHEN, MICHAEL ([id number]), photographic editor CLARISA MOE ([id number] on 09/22/2020 12:56:48 PM Referred By: Greg Buckner Confirmed By:MICHAEL GIBBS MD
== END 2020-08-24 23:59 ==
LOC: CR 11:30
PROVIDERS: PCP Internal Medicine; Referring Provider Thoracic Surgery (Cardiothoracic Vascular Surgery); Visit Provider Thoracic Surgery (Cardiothoracic Vascular Surgery)
DX: Z95.1 Presence of aortocoronary bypass graft (principal)
CPT/HCPCS: 93005; 93798

== ENCOUNTER 2020-09-23 11:30 | Outpatient (RCR) | payer MEDICARE, OTHER, SELFPAY ==
[2020-08-04 12:21] VITALS: BMI 30.5
[2020-08-04 13:02] VITALS: BMI 29.1
--- NOTE | 2020-09-04 08:37 | CR.ITP_ITS ---
Exercise - 30-day Assessment - Visit Date of Eval: 09/04/20 Session #:: 6 - Physician Prescribed Exercise Modalities: Treadmill, Airdyne, NuStep Frequency: 3x/week for 12 weeks [36 sessions] Intensity: 60-80% of age predicted maximum heart rate reserve Current METSs:: 3.9 Target Heart Rate:: 99-129 Current RPE:: 11-12 Maximum Excercise HR:: 92 Resting Blood Pressure: 124/72 Maximum Exercise Blood Pressure: 124/72 EKG Type: NSR - Outcomes & Goals Goals:: Verbalizes understanding of THR, RPE & goal METS by session 6, Documents in home exercise log/reports 30 min aerobic 5 day/wk by DC, Demonstrates accurate pulse taking by DC, Other additional outcome/goals: see below - Intervention & Plan Exercise Program Goals: Instruct on personal THR & RPE, Instruct on MET level & personal MET goal, Show patient to take own pulse /validate performance until accurate, Instruct on home exercise, Other additional plan/int - 30-day Reassessments 30 day Reassessments:: Progressing - Physical Activity Home Exercise Physical Activity - Home Exercise: Safe Exercise, Warm-up, Self-monitoring, Cool-Down, Home Exercise > 30 min Daily, Sitting Time <3 hours/daily - Outcomes & Goals Outcomes/Goals: Demonstrates correct Warm-up/exercise Cool-Down (S3) if = 2.5 METs, Verbalizes symptoms of exercise intolerance by Session 3 (S3), Demonstrate safe equipment use (S3) & follows exercise prescrition (6), Other: See below - Intervention & Plan Plan/Intervention: Instruct warm-up & cool-down if exercising at > 2 METs, Instruct on symptoms of exercise intolerance & actions to take, Instruct & monitor on saf, Assess intial functional capacity & safety risk, Other See below - 30-day Reassessments 30 day Reassessments:: Progressing Nutrition - 30-Day Assessment - Program Goals Nutrition Program Goals: LDL <100 optimal. 100 - 129 Near optimal. 130 - 159 Borderline High. 160 - 189 High. Total Cholesterol <200 desirable. 200 - 239 Borderline High. >/= 240 High. HDL < 40 Low >/=60 High. Triglycerides <150 desirable. <199 optimal. VlDL 5 - 40. HgbA1C <7%. BMI <25 Patient has diagnosis of Hyperlipidemia (ICD E78)?: Yes - Visit Date of Assessment:: 09/04/20 Session #:: 6 - Cholesterol/Lipids Determine presence & major risk factors that modify LDL goal: Hypertension or hypertensive medication, Low HDL cholesterol <40 mg/dL*, Family history of premature CHD in Male < 55 years: female <65 yearsFa, Age men > 45 years; women >/= 55 years Outcomes/Goals: Pt IDs own risk factors & lifestyle modifications by Session 10, Verbalizes symptoms of angina & response by session 3., Pt independently manages, Other Additional Outcomes/Goals: Intervention/Plan: Advocate for lipid panel cholesterol medication if appli cable, Instruct on personal lipid levels & lipid goals/NCEP guidelines, Instruct on cholesterol, Other additional plan/int 30-day Reassessments:: Progressing - Diabetes (Other Core Measures) Diabetes Type: Not Applicable - Weight Mgt (Other Care) Height: 5 ft 11 in Weight:: 94.801 kg BMI: 29.1 Outcomes/Goals: Pt sets, maintains & shows weight loss goal & trend during rehab, Other additional outcomes/goals 30 day Reassessments:: Progressing - Healthy Eating Habits Will attend diet classes:: Yes Outcomes/Goals:: Consume diet rich in vegs,fruits,whole grain/high fiber,fish,lean meat, Limit sat/trans fats,cholesterol & added salts & sugars, Other additional outcome/goals: 30-day Reassessments:: Progressing - Education Gave educational materials for:: Signs & symptoms of hypoglycemia, Signs & symptoms of hyperglycemia, Relate diabetes to coronary artery disease, Healthy eating Medical- 30-Day Assessment - Visit Date of Eval: 09/04/20 Session #:: 6 - Medication Compliance Preventative Medication(s):: Aspirin, Statin/lipid, Beta naila H/O mental health issues: depression, anxiety, or addiction?: No Doesn?t believe in the benefits of treatment?: No Believes medications are unnecessary or harmful?: No Has a concern about medication side effects?: No Expresses concern over the cost of medications?: No Outcomes/Goals: Verbalizes medications,desired effect & common side effects @ DC, Pt self-reports following medication regimen, Keeps card in wallet w/medications listed by DC, Other additional outcome/goals: - Hypertension Hypertension Diagnosis:: Hypertension ICD-10 I10 Resting Blood Pressure:: 124/72 [place] [employer] Hypertension Guidelines: [place] [employer] H ypertension Guidelines. Normal BP Less than 120/80. Elevated BP 120/80. Hypertension Stage 1: BP 130-139/80-89. Hypertesnion Stage 2: BP 140 or higher/90 or higher. Hypertension Crisis: BP higher than 180/120 Peak Exercise Blood Pressure:: 124/72 Outcomes/Goals: Able to verbalize/achieve optimal blood pressure <130/80, Incorporates diet changes & exercise for blood pressure control by DC, Other additional outcomes/goals Interventions/plan: Instruct on optimal blood pressure, hypertension & medications, Instruct on effects of sodium, alcohol, stress, exercise &hypertension, Other additional plan/interventions 30 day Reassessments:: Progressing - Tobacco Cessation Referral Smoking Cessation Referral:: No Individual Education/Counseling:: No Education Schedule Given:: Yes Psychosocial - 30-Day Assess - VIsit Date of Eval: 09/04/20 Session #:: 6 History of previous Mental disease:: No - Target Goals Target Goals: Assess presence or absence of depression. Using a valid screening tool, maximizes coping skills. Positive support system - Psychosocial Test phq-9 Severity: Severity. 1-4 Minimal Depression. 5-9 Mild Depression. 10-14 Moderate Depression. 15-19 Moderately Sever Depression. 20-27 Severe Depression. Rule: - 30-day Reassessments: 30 day Reassessments:: Progressing Patient Health Questionnaire 30-Day Re-eval Assessment 1. Little interest or pleasure in doing things: Not at all 2. Feeling down, depressed, or hopeless: Not at all 3. Trouble falling or staying asleep, or sleeping too much: Several days 4. Feeling tired or having little energy: Not at all 5. Poor appetite or overeating: Not at all 6. Feeling bad about yourself -- or that you are a failure or have let yourself or your family down: Not at all 7. Trouble concentrating on things, such as reading the newspaper or watching television: Not at all 8. Moving or speaking so slowly that other people could have noticed. Or the opposite - being so fidgety or restless that you have been moving around a lot more than usual: Not at all 9. Thoughts that you would be better off , or of hurting yourself in some way: Not at all How difficult have these problems made it for you to do your work, take care of things at home, or get along with other people?: Not difficult at all Total Score: 1 Self-Efficacy 30-Day Re-eval Assessment We would like to know how confident you are in doing certain activities. Please select your confidence level for:: Select your confidence level for the following using the scale 1-10 where 1 is not at all confident and 10 is totally confident. Your score is the average of all 6 responses. Fatigue: How confident are you that you can keep the fatigue caused by your disease from interfering with the things you want to do? Select Number: 9 Physical Discomfort or Pain: How confident are you that you can keep the physical discomfort or pain of your disease from interfering with the things you want to do? Select Number: 9 Emotional Distress: How confident are you that you can keep the emotional distress caused by your disease from interfering with the things you want to do? Select Number: 9 Other Symptoms or Health Problems: How confident are you that you can keep other symptoms or health problems from interfering with the things you want to do? Select Number: 9 Different Tasks and Activities: How confident are you that you can do the different tasks and activities needed to manage your health condition so as to reduce your need to see a doctor? Select Number: 9 Medication: How confident are you that you can do things other than just taking medication to reduce how much your illness affects your everyday life? Select Number: 9 Total Score:: 9
[2020-09-04 08:42] VITALS: BP 124/72; BMI 29.1
== END 2020-09-24 23:59 ==
LOC: CR 11:30
PROVIDERS: PCP Internal Medicine; Referring Provider Thoracic Surgery (Cardiothoracic Vascular Surgery); Visit Provider Thoracic Surgery (Cardiothoracic Vascular Surgery)
DX: Z95.1 Presence of aortocoronary bypass graft (principal)
CPT/HCPCS: 93798

== ENCOUNTER 2020-10-23 11:30 | Outpatient (RCR) | payer MEDICARE, OTHER, SELFPAY ==
[2020-08-04 12:21] VITALS: BMI 30.5
[2020-09-04 08:42] VITALS: BMI 29.1
[2020-09-25 00:34] VITALS: BP 124/72
--- NOTE | 2020-10-05 07:11 | CR.ITP_ITS ---
Exercise - 60-day Assessment - Visit Date of Eval: 10/05/20 Session #:: 17 - Patient only mised one scheduled session - Physician Prescribed Exercise Modalities: Treadmill, Airdyne, NuStep Frequency: 3x/week for 12 weeks [36 sessions] Intensity: 60-80% of age predicted maximum heart rate reserve Current METSs:: 4.5 increased from 4.0 Target Heart Rate:: 99-129 Current RPE:: 13-14 Maximum Excercise HR:: 93 Resting Blood Pressure: 128/62 Maximum Exercise Blood Pressure: 134/68 EKG Type: Sinus bradycardia to sinus rhtyhm with rare PVCs adn PACs - Outcomes & Goals Goals:: Verbalizes understanding of THR, RPE & goal METS by session 6, Documents in home exercise log/reports 30 min aerobic 5 day/wk by DC, Demonstrates accurate pulse taking by DC - Intervention & Plan Exercise Program Goals: Instruct on personal THR & RPE, Instruct on MET level & personal MET goal, Show patient to take own pulse /validate performance until accurate, Instruct on home exercise - 30-day Reassessments 30 day Reassessments:: Progressing - Physical Activity Home Exercise Physical Activity - Home Exercise: Safe Exercise, Warm-up, Self-monitoring, Cool-Down, Home Exercise > 30 min Daily, Sitting Time <3 hours/daily - Outcomes & Goals Outcomes/Goals: Demonstrates correct Warm-up/exercise Cool-Down (S3) if = 2.5 METs, Verbalizes symptoms of exercise intolerance by Session 3 (S3), Demonstrate safe equipment use (S3) & follows exercise prescrition (6) - Intervention & Plan Plan/Intervention: Instruct warm-up & cool-down if exercising at > 2 METs, Instruct on symptoms of exercise intolerance & actions to take, Instruct & monitor on saf, Assess intial functional capacity & safety risk - 30-day Reassessments 30 day Reassessments:: Progressing Nutrition - 60-Day Assessment - Program Goals Nutrition Program Goals: LDL <100 optimal. 100 - 129 Near optimal. 130 - 159 Borderline High. 160 - 189 High. Total Cholesterol <200 desirable. 200 - 239 Borderline High. >/= 240 High. HDL < 40 Low >/=60 High. Triglycerides <150 desirable. <199 optimal. VlDL 5 - 40. HgbA1C <7%. BMI <25 Patient has diagnosis of Hyperlipidemia (ICD E78)?: Yes - Visit Date of Assessment:: 10/05/20 - no recent labs since admission to - Cholesterol/Lipids Determine presence & major risk factors that modify LDL goal: Hypertension or hypertensive medication, Family history of premature CHD in Male < 55 years: female <65 yearsFa, Age men > 45 years; women >/= 55 years Outcomes/Goals: Pt IDs own risk factors & lifestyle modifications by Session 10, Verbalizes symptoms of angina & response by session 3., Pt independently manages Intervention/Plan: Instruct on personal lipid levels & lipid goals/NCEP guidelines, Instruct on cholesterol Referral to dietitian:: No - Patient declined Nutrition Services 30-day Reassessments:: Progressing - Diabetes (Other Core Measures) Diabetes Type: Not Applicable - Weight Mgt (Other Care) Not Applicable: Yes Height: 5 ft 11 in Weight:: 183 lb BMI: 25.5 Diagnosis Overweight/Obesity BMI> 30% ICD-10 E66: No Diagnosis High BMI/Morbid Obesity BMI> 35% ICD-10 Z68: No Outcomes/Goals: Pt sets, maintains & shows weight loss goal & trend during rehab Intervention/Plan: Instruct on ideal BMI & set weight loss goal w/patient, Assist pt to ID & incorporate diet changes for weight loss by S9 30 day Reassessments:: Met - Healthy Eating Habits Will attend diet classes:: Yes Outcomes/Goals:: Consume diet rich in vegs,fruits,whole grain/high fiber,fish,lean meat, Limit sat/trans fats,cholesterol & added salts & sugars Intervention/Plan:: Assess current eating habits 30-day Reassessments:: Progressing Medical- 60-Day Assessment - Visit Date of Eval: 10/05/20 Session #:: 17 - Medication Compliance Preventative Medication(s):: Aspirin, Statin/lipid, Beta naila H/O mental health issues: depression, anxiety, or addiction?: No Doesn?t believe in the benefits of treatment?: No Believes medications are unnecessary or harmful?: No Has a concern about medication side effects?: No Expresses concern over the cost of medications?: No Outcomes/Goals: Verbalizes medications,desired effect & common side effects @ DC, Pt self-reports following medication regimen, Keeps card in wallet w/medications listed by DC Interventions/plans: Instruct on medication effects & side effects, Review medication list w/patient every two weeks, Instruct importance of taking meds as ordered & assist problem solving 30-day Reassessments:: Progressing - Tobacco Use Tobacco Use: Non-smoker - Hypertension Hypertension Diagnosis:: Hypertension ICD-10 I10 Resting Blood Pressure:: 128/62 [place] [employer] Hypertension Guidelines: [place] [employer] Hypertension Guidelines. Normal BP Less than 120/80. Elevated BP 120/80. Hypertension Stage 1: BP 130-139/80-89. Hypertesnion Stage 2: BP 140 or higher/90 or higher. Hypertension Crisis: BP higher than 180/120 Peak Exercise Blood Pressure:: 134/68 Outcomes/Goals: Able to verbalize/achieve optimal blood pressure <130/80, Inc orporates diet changes & exercise for blood pressure control by DC Interventions/plan: Instruct on optimal blood pressure, hypertension & medications, Instruct on effects of sodium, alcohol, stress, exercise &hypertension 30 day Reassessments:: Progressing - Tobacco Cessation Referral Smoking Cessation Referral:: No Individual Education/Counseling:: No Education Schedule Given:: Yes Patient Health Questionnaire 60-Day Re-eval Assessment 1. Little interest or pleasure in doing things: Not at all 2. Feeling down, depressed, or hopeless: Not at all 3. Trouble falling or staying asleep, or sleeping too much: Not at all 4. Feeling tired or having little energy: Not at all 5. Poor appetite or overeating: Not at all 6. Feeling bad about yourself -- or that you are a failure or have let yourself or your family down: Not at all 7. Trouble concentrating on things, such as reading the newspaper or watching television: Not at all 8. Moving or speaking so slowly that other people could have noticed. Or the opposite - being so fidgety or restless that you have been moving around a lot more than usual: Not at all 9. Thoughts that you would be better off , or of hurting yourself in some way: Not at all Total Score: 0 Self-Efficacy 60-Day Re-eval Assessment We would like to know how confident you are in doing certain activities. Please select your confidence level for:: Select your confidence level for the following using the scale 1-10 where 1 is not at all confident and 10 is totally confident. Your score is the average of all 6 responses. Fatigue: How confident are you that you can keep the fatigue caused by your disease from interfering with the things you want to do? Select Number: 9 Physical Discomfort or Pain: How confident are you that you can keep the physical discomfort or pain of your disease from interfering with the things you want to do? Select Number: 10 Emotional Distress: How confident are you that you can keep the emotional distress caused by your disease from interfering with the things you want to do? Select Number: 10 Other Symptoms or Health Problems: How confident are you that you can keep other symptoms or health problems from interfering with the things you want to do? Select Number: 10 Different Tasks and Activities: How confident are you that you can do the different tasks and activities needed to manage your health condition so as to reduce your need to see a doctor? Select Number: 10 Medication: How confident are you that you can do things other than just taking medication to reduce how much your illness affects your everyday life? Select Number: 10 Total Score:: 9
[2020-10-05 07:18] VITALS: BP 128/62; BP 134/68; BMI 25.5
== END 2020-10-25 23:59 ==
LOC: CR 11:30
PROVIDERS: PCP Internal Medicine; Referring Provider Thoracic Surgery (Cardiothoracic Vascular Surgery); Visit Provider Thoracic Surgery (Cardiothoracic Vascular Surgery)
DX: Z95.1 Presence of aortocoronary bypass graft (principal)
CPT/HCPCS: 93798

== ENCOUNTER 2020-11-18 11:30 | Outpatient (RCR) | payer MEDICARE, OTHER, SELFPAY ==
[2020-08-04 12:21] VITALS: BMI 30.5
[2020-10-05 07:18] VITALS: BMI 25.5
[2020-10-26 00:30] VITALS: BP 128/62; BP 134/68
--- NOTE | 2020-11-03 10:03 | CR.ITP_ITS ---
Exercise - 90-day Assessment - Visit Date of Eval: 11/03/20 Session #:: 30 - Physician Prescribed Exercise Modalities: Treadmill, Airdyne, NuStep Frequency: 3x/week for 12 weeks [36 sessions] Intensity: 60-80% of age predicted maximum heart rate reserve Current METSs:: 4.5 unchanged Target Heart Rate:: 99-129 Current RPE:: 12-14 Maximum Excercise HR:: 89 Resting Blood Pressure: 124/70 Maximum Exercise Blood Pressure: 124/56 EKG Type: SB to SR with isolated PAC. - Outcomes & Goals Goals:: Verbalizes understanding of THR, RPE & goal METS by session 6, Documents in home exercise log/reports 30 min aerobic 5 day/wk by DC, Demonstrates accurate pulse taking by DC - Intervention & Plan Exercise Program Goals: Instruct on personal THR & RPE, Instruct on MET level & personal MET goal, Show patient to take own pulse /validate performance until accurate, Instruct on home exercise - 30-day Reassessments 30 day Reassessments:: Progressing - Physical Activity Home Exercise Physical Activity - Home Exercise: Safe Exercise, Warm-up, Self-monitoring, Cool-Down, Home Exercise > 30 min Daily, Sitting Time <3 hours/daily - Outcomes & Goals Outcomes/Goals: Demonstrates correct Warm-up/exercise Cool-Down (S3) if = 2.5 METs, Verbalizes symptoms of exercise intolerance by Session 3 (S3), Demonstrate safe equipment use (S3) & follows exercise prescrition (6) - Intervention & Plan Plan/Intervention: Instruct warm-up & cool-down if exercising at > 2 METs, Instruct on symptoms of exercise intolerance & actions to take, Instruct & monitor on saf, Assess intial functional capacity & safety risk - 30-day Reassessments 30 day Reassessments:: Progressing Nutrition - 90-Day Assessment - Program Goals Nutrition Program Goals: LDL <100 optimal. 100 - 129 Near optimal. 130 - 159 Borderline High. 160 - 189 High. Total Cholesterol <200 desirable. 200 - 239 Borderline High. >/= 240 High. HDL < 40 Low >/=60 High. Triglycerides <150 desirable. <199 optimal. VlDL 5 - 40. HgbA1C <7%. BMI <25 Patient has diagnosis of Hyperlipidemia (ICD E78)?: Yes - Visit Date of Assessment:: 11/03/20 Session #:: 30 - no recent updated labs - Cholesterol/Lipids Determine presence & major risk factors that modify LDL goal: Hypertension or hypertensive medication, Family history of premature CHD in Male < 55 years: female <65 yearsFa, Age men > 45 years; women >/= 55 years Outcomes/Goals: Pt IDs own risk factors & lifestyle modifications by Session 10, Verbalizes symptoms of angina & response by session 3., Pt independently manages Intervention/Plan: Instruct on personal lipid levels & lipid goals/NCEP guidelines, Instruct on cholesterol 30-day Reassessments:: Progressing - Diabetes (Other Core Measures) Diabetes Type: Not Applicable - Weight Mgt (Other Care) Not Applicable: Yes Height: 5 ft 11 in Weight:: 188 lb 8 oz BMI: 26.2 Diagnosis Overweight/Obesity BMI> 30% ICD-10 E66: No Diagnosis High BMI/Morbid Obesity BMI> 35% ICD-10 Z68: No Outcomes/Goals: Pt sets, maintains & shows weight loss goal & trend during rehab Intervention/Plan: Instruct on ideal BMI & set weight loss goal w/patient 30 day Reassessments:: Met - Healthy Eating Habits Will attend diet classes:: Yes Outcomes/Goals:: Consume diet rich in vegs,fruits,whole grain/high fiber,fish,lean meat, Limit sat/trans fats,cholesterol & added salts & sugars Intervention/Plan:: Assess current eating habits 30-day Reassessments:: Met Medical- 90-Day Assessment - Visit Date of Eval: 11/03/20 Session #:: 30 - Medication Compliance Preventative Medication(s):: Aspirin, Statin/lipid, Beta naila H/O mental health issues: depression, anxiety, or addiction?: No Doesn?t believe in the benefits of treatment?: No Believes medications are unnecessary or harmful?: No Has a concern about medication side effects?: No Expresses concern over the cost of medications?: No Outcomes/Goals: Verbalizes medications,desired effect & common side effects @ DC, Pt self-reports following medication regimen, Keeps card in wallet w/medications listed by DC Interventions/plans: Instruct on medication effects & side effects, Review medication list w/patient every two weeks, Instruct importance of taking meds as ordered & assist problem solving 30-day Reassessments:: Progressing - Tobacco Use Tobacco Use: Non-smoker - Hypertension Hypertension Diagnosis:: Hypertension ICD-10 I10 Resting Blood Pressure:: 124/70 [place] [employer] Hypertension Guidelines: [place] [employer] Hypertension Guidelines. Normal BP Less than 120/80. Elevated BP 120/80. Hypertension Stage 1: BP 130-139/80-89. Hypertesnion Stage 2: BP 140 or higher/90 or higher. Hypertension Crisis: BP higher than 180/120 Peak Exercise Blood Pressure:: 124/56 Outcomes/Goals: Able to verbalize/achieve optimal blood pressure <130/80, Incorporates diet changes & exercise for blood pressure control by DC Interventions/plan: Instruct on optimal blood pressure, hypertension & medications, Instruct on effects of sodium, alcohol, stress, exercise &hypertension 30 day Reassessments:: Met - Tobacco Cessation Referral Smoking Cessation Referral:: No Individual Education/Counseling:: No Education Schedule Given:: Yes Psychosocial - 90-Day Assess - VIsit Date of Eval: 11/03/20 Session #:: 30 Not Applicable: Yes History of previous Mental disease:: No - Target Goals Target Goals: Assess presence or absence of depression. Using a valid screening tool, maximizes coping skills. Positive support system - Psychosocial Test Tool Used:: PHQ-9 Questionnaire phq-9 Severity: Severity. 1-4 Minimal Depression. 5-9 Mild Depression. 10-14 Moderate Depression. 15-19 Moderately Sever Depression. 20-27 Severe Depression. Rule: - Referral to Behavioral Health PS - Interventions: Yes Attend Stress Management Classes, No Referral to [facility] if PHQ-9 score >9:, No Referral to [facility], No Referral to Physician if PHQ-9 if score is 5-9: - Outcomes/Goals: See list Psychosocial Outcomes/Goals:: ID's personal stressors & 2 strategies to manage stress by discharge - Intervention/Plan: See List Interventions/Plan:: Assess stressors,coping strategies & signs of derpression on admission, Instruct/assist pt to develop coping & personal stress Mgt strategies, Instruct patient to recognize signs & symptoms of depression - 30-day Reassessments: 30 day Reassessments:: Met Patient Health Questionnaire 90-Day Re-eval Assessment 1. Little interest or pleasure in doing things: Not at all 2. Feeling down, depressed, or hopeless: Not at all 3. Trouble falling or staying asleep, or sleeping too much: Not at all 4. Feeling tired or having little energy: Not at all 5. Poor appetite or overeating: Not at all 6. Feeling bad about yourself -- or that you are a failure or have let yourself or your family down: Not at all 7. Trouble concentrating on things, such as reading the newspaper or watching te levision: Not at all 8. Moving or speaking so slowly that other people could have noticed. Or the opposite - being so fidgety or restless that you have been moving around a lot more than usual: Not at all 9. Thoughts that you would be better off , or of hurting yourself in some way: Not at all Total Score: 0 Self-Efficacy 90-Day Re-eval Assessment We would like to know how confident you are in doing certain activities. Please select your confidence level for:: Select your confidence level for the following using the scale 1-10 where 1 is not at all confident and 10 is totally confident. Your score is the average of all 6 responses. Fatigue: How confident are you that you can keep the fatigue caused by your disease from interfering with the things you want to do? Select Number: 10 Physical Discomfort or Pain: How confident are you that you can keep the physical discomfort or pain of your disease from interfering with the things you want to do? Select Number: 10 Emotional Distress: How confident are you that you can keep the emotional distress caused by your disease from interfering with the things you want to do? Select Number: 10 Other Symptoms or Health Problems: How confident are you that you can keep other symptoms or health problems from interfering with the things you want to do? Select Number: 10 Different Tasks and Activities: How confident are you that you can do the different tasks and activities needed to manage your health condition so as to reduce your need to see a doctor? Select Number: 10 Medication: How confident are you that you can do things other than just taking medication to reduce how much your illness affects your everyday life? Select Number: 10 Total Score:: 10
[2020-11-03 10:07] VITALS: BP 124/56; BP 124/70; BMI 26.2
== END 2020-11-22 23:59 ==
LOC: CR 11:30
PROVIDERS: PCP Internal Medicine; Referring Provider Thoracic Surgery (Cardiothoracic Vascular Surgery); Visit Provider Thoracic Surgery (Cardiothoracic Vascular Surgery)
DX: Z95.1 Presence of aortocoronary bypass graft (principal)
CPT/HCPCS: 93798

== ENCOUNTER 2024-10-13 10:07 | Emergency (ER) | payer MEDICARE, OTHER, SELFPAY ==
[2020-11-03 10:07] VITALS: BMI 26.2
[2024-10-13 10:07] VITALS: BP 157/81; PULSE 69; RESP 14; TEMP 36.1; O2SAT 98; BMI 26.9
[2024-10-13] MEDS: HYDROcodone Bitartrate/Apap 5/325 Tablet PO (10:26)
--- NOTE | 2024-10-13 10:28 | RAD_ITS ---
STUDY: X-RAY - LEFT SHOULDER REASON FOR EXAM: Male, 73 years old. Injury/Pain TECHNIQUE: 4 view(s) of the shoulder. COMPARISON: None. FINDINGS: Normal glenohumeral articulation. Normal acromioclavicular joint. Normal acromion. There is humeral head and surgical neck fracture. The soft tissue structures are unremarkable. Normal visualized pulmonary apex. RAD/Shoulder min 2 Views IMPRESSION: Proximal humerus fracture. Electronically Signed: Jose Alejandro Braun MD at 10:56 EST ,
--- NOTE | 2024-10-13 11:39 | EX.ED.UPPERE ---
HPI History of Present Illness Chief Complaint: Upper Extremity Injury Detail of Chief Complaint: Patient presents because of left shoulder pain status post fall yesterday. Informant: patient and spouse/S.O. Occured/Mechanism Mechanism/Context: Yes injury, Yes blunt trauma and Yes fall Comment: Patient fell onto his left shoulder. Onset/Context/Timing Onset: Today Context: Sudden Onset Timing: Continuous Quality of Pain: Dull and Aching Location: Proximal left humerus Current Severity: Mild Maximum Severity: Severe Worsened by: Any attempt to move Relieved by: Nothing Associated Symptoms Associated Symptoms: Positive for Loss of Funtion; Negative for Parasthesia or Weakness Narrative Narrative: Patient is a 73-year-old [id number] male who presents after fall onto his left shoulder. He is on no anticoagulant. He does have a history of hypertension and hypercholesterolemia. He denies paresthesia, anesthesia or motor weakness of the left upper extremity. He denies headache. Denies visual, ocular auditory symptoms. No trouble speech or swallowing. He denies neck pain. Prior similar symptoms: No Recent Illness/Hospitalization: No PFSH [facility] Medical History Abnormal colonoscopy Situational mixed anxiety and depressive disorder Situational anxiety Prostate cancer Hyperlipidemia Obesity (BMI 30-39.9) Mitral regurgitation Internal hemorrhoids Incisional hernia Hyperglycemia Hypertension Chronic rhinitis Anxiety BPH (benign prostatic hyperplasia) Home Medications ?Medication ?Instructions ?Recorded ?Last Taken ?Type Enalapril/Hydrochlorothiazide 1 ea PO DAILY 12/10/14 Unknown History [Vaseretic 10-25 Mg Tablet] aspirin 81 mg chewable tablet 81 mg PO DAILY@0800 12/10/14 Unknown History multivitamin,bk-[id number] 27 1 tab PO DAILY 12/10/14 Unknown History mg-0.4 mg tablet (Therems-M) escitalopram oxalate 10 mg tablet 10 mg PO DAILY 08/04/20 Unknown History gabapentin 100 mg capsule 100 mg PO BIDCM 08/04/20 Unknown History magnesium oxide 400 mg (241.3 mg 400 mg PO DAILY 08/04/20 Unknown History magnesium) tablet metoprolol tartrate 25 mg tablet 25 mg PO BID 08/04/20 Unknown History rosuvastatin 20 mg tablet 20 mg PO QHS 08/04/20 Unknown History tamsulosin 0.4 mg capsule 0.4 mg PO 08/04/20 Unknown History hydrocodone-acetaminophen 5-325mg 1 tab PO Q6H PRN PRN Pain 3 days 10/13/24 Unknown Rx 5mg-325mg #20 TABLETS Allergy/AdvReac Type Severity Reaction Status Date / Time No Known Allergies Allergy Verified 10/13/24 10:07 Surgical History History of incisional hernia repair H/O prostatectomy H/O adenoidectomy Hx of tonsillectomy History of appendectomy Social History Smoking Status: Never smoker ROS ROS ED Constitutional Constitutional ED: Denies chills, fever(s) or subjective Eyes Eyes: Denies blurry vision or change in vision ENT ENT ED: Denies rhinorrhea or sore throat Cardiovascular Cardiovascular: Denies chest pain or palpitations Respiratory/Chest Respiratory/Chest: Denies dyspnea or dyspnea on exertion Gastrointestinal Gastrointestinal: Denies nausea or vomiting Musculoskeletal Musculoskeletal: Denies neck pain Integumentary Denies rash Neurologic Neurologic: Denies paresthesias or weakness Hematologic/Lymphatic Hematologic/Lymphatic: Denies easy bruising EXAM Physical Exam Const Vital Signs: 10/13/24 10:07 Temperature 97 F L Temperature Source Temporal Pulse Rate 69 Respiratory Rate 14 Blood Pressure 157/81 H Blood Pressure Mean 106 Pulse Ox 98 Oxygen Delivery Method Room Air Positive well nourished and well developed Constitutional Narrative: Vital signs reveal elevated blood pressure otherwise unremarkable. General Appearance ED: well developed and NAD; Negative for cyanotic or diaphoretic HEENT Reports moist mucous membranes normocephalic and atraumatic Eyes PERRL and EOMs intact bilaterally Neck full ROM Neck Narrative: No posterior midline pain. Resp normal respiratory effort and clear to auscultation bilaterally Cardio regular rate, regular rhythm, S1 normal heart sound, S2 normal heart sound and no murmurs Extremity Negative for full ROM Extremity Narrative: Patient has no pain ovation over the clavicle or AC joint. There is pain the patient with the proximal humerus. There is no pain the patient over the lateral medial epicondyle, olecranon process or radial head. He has no pain the patient over there is the radius ulna, carpal bones, metacarpal bones or phalanges. Patient's axillary, median, radial and ulnar function intact. Radial pulses palpable. Neuro oriented x3, CN's II-XII intact bilaterally, moves all extremities and no focal motor deficits Sensorium / Orientation: alert Motor Exam: strength 5/5 throughout Psych mental status grossly normal Skin Lesions: no lesions Rashes: no rashes Trauma: no lacerations or abrasions MDM MDM MDM Narrative Medical decision making narrative: X-ray was obtained to evaluate for fracture versus contusion. Since there is no head trauma CT of the head is not indicated. Patient has no neck pain and no imaging is indicated my opinion. Radiography Chest X-Ray - ED: Read by ED Physician (4 view x-ray of the left shoulder reveals a nondisplaced proximal humeral fracture at the surgical neck. This is entirely reviewed interpreted by me.) Diagnostic Testing: Clinical Impression(s) from Imaging Studies Shoulder X-Ray 10/13/24 10:28 IMPRESSION: Proximal humerus fracture. Electronically Signed: Jose Alejandro Braun MD at 10:56 EST Reading Location ID and State: [address] [place] [address] , Service support , Treatment and Re-Evaluation Narrative: Patient has a nondisplaced nonangulated fracture proximal humerus surgical neck. He was placed in a sling. He is referred to Dr. Shafer who is on-call for Ortho no doc. He was discharged with pain medicine. He has no allergies to medication. Discharge Plan Triage Chief Complaint: Upper Extremity Injury ED Provider: Kelvin Atkinson Dx/Rx/DC Orders Clinical Impression: Closed fracture of proximal end of left humerus, Injury due to fall, Elevated blood pressure reading with diagnosis of hypertension Instructions: ED Fracture, Shoulder Prescriptions: New hydrocodone-acetaminophen 5-325 mg tablet 1 tab PO Q6H PRN PRN (Reason: Pain) 3 Days Qty: 20 0RF No Action aspirin 81 MG tablet,chewable 81 mg PO DAILY@0800 Patient Comments: heart health multivitamin,ws-cczi-xaahotme [Therems-M] 1 TABLET tablet 1 tab PO DAILY Patient Comments: supplement Enalapril/Hydrochlorothiazide [Vaseretic 10-25 Mg Tablet] 1 EACH tablet 1 ea PO DAILY Patient Comments: high blood pressure magnesium oxide 400 MG tablet 400 mg PO DAILY tamsulosin 0.4 MG capsule 0.4 mg PO gabapentin 100 MG capsule 100 mg PO BIDCM escitalopram oxalate 10 MG tablet 10 mg PO DAILY rosuvastatin 20 MG tablet 20 mg PO QHS metoprolol tartrate 25 MG tablet 25 mg PO BID Primary Care Provider: Tanna Hinds Referrals: Tanna Hinds MD [Primary Care Provider] - Darci Shafer DO [Med Staff - Active Staff] - 5-7 Days Print Language: Azeri
[2024-10-13 11:58] VITALS: BP 130/74; PULSE 78; RESP 15; TEMP 36.8; O2SAT 99
== END 2024-10-13 12:00 | disposition home or self-care (01) ==
PROVIDERS: Emergency Provider Emergency Medicine; PCP Internal Medicine; Visit Provider Emergency Medicine
DX: S42.215A Unspecified nondisplaced fracture of surgical neck of left humerus, initial encounter for closed fracture (principal); W19.XXXA Unspecified fall, initial encounter; I10 Essential (primary) hypertension; N40.0 Benign prostatic hyperplasia without lower urinary tract symptoms; F41.8 Other specified anxiety disorders; E78.00 Pure hypercholesterolemia, unspecified; Z85.46 Personal history of malignant neoplasm of prostate; Z79.82 Long term (current) use of aspirin; Z79.899 Other long term (current) drug therapy; Z90.79 Acquired absence of other genital organ(s)
CPT/HCPCS: 73030; 99283